=== PATIENT | female | born 1960 | race Two or more races ===

== ENCOUNTER 2021-09-03 09:40 | Outpatient (REF) | payer MEDICAID, SELFPAY ==
--- NOTE | ~2021-09-03 | XR_ITS ---
EXAMINATION: XR CHEST CLINICAL INFORMATION: Shortness of breath COMPARISON: None TECHNIQUE: 2 views of the chest were obtained. FINDINGS: Cardiac silhouette is normal in size. The lungs are well aerated. There is no lobar consolidation. No pleural effusion or pneumothorax. No acute osseous abnormality. XR/XR chest 2V IMPRESSION: No acute pulmonary pathology.
== END 2021-09-03 09:41 | disposition home or self-care (01) ==
LOC: HO.XRAY 09:40
PROVIDERS: Absent Provider Internal Medicine; PCP Internal Medicine; Visit Provider Emergency Medicine
DX: R06.02 Shortness of breath (principal)
CPT/HCPCS: 71046

== ENCOUNTER → 2021-09-25 08:32 | Outpatient (BNVA) | payer MEDICAID, SELFPAY | PROVIDERS: PCP Internal Medicine; Visit Provider Internal Medicine Pulmonary Disease ==

== ENCOUNTER 2021-10-21 08:48 | Outpatient (REF) | payer MEDICAID, SELFPAY ==
--- NOTE | 2021-10-21 10:23 | PFT_ITS ---
INDICATION: Dyspnea. SPIROMETRY: The FEV1 to FVC of 88% with an FEV1 of 2.42 L, 111% predicted, and FVC of 2.74 L, which is 99% predicted. No significant response to bronchodilators noted. Maximum voluntary ventilation 120% predicted. LUNG VOLUMES: Total lung capacity 98% predicted with an expiratory reserve volume of 59% predicted. DIFFUSION CAPACITY: DLCO 84% predicted. COMPARISONS: None available. INTERPRETATION: No obstructive nor restrictive ventilatory defects identified. No significant response to bronchodilators noted. Normal maximum voluntary ventilation. Lung volumes are within normal limits. The patient also has a normal diffusing capacity. If asthma is in the differential, methacholine challenge may be helpful in assessing for hyper-reactive airways, otherwise clinical correlation is warranted. MD ELLIOT Dillard/JEN / [id number]
== END 2021-10-21 08:49 | disposition home or self-care (01) ==
LOC: HO.RESP 08:48
PROVIDERS: PCP Internal Medicine; Visit Provider Internal Medicine Pulmonary Disease
DX: R06.00 Dyspnea, unspecified (principal)
CPT/HCPCS: 94060; 94727; 94729; 99212

== ENCOUNTER → 2021-11-27 08:04 | Outpatient (REF) | payer MEDICAID, SELFPAY ==
--- NOTE | 2021-11-27 08:09 | CA_ITS ---
Transthoracic Echocardiogram Patient (Last, First, Middle): Anthony Coulter, Gender: Female Date of : 1960 Age: 61 Procedure Date: 11/27/2021 Procedure Type: Transthoracic Echocardiogram Location: OP Height: 152.4 cm Weight: 49.9 kg BSA: 1.45 m2 Heart Rate: bpm BP: 120 / 70 mmHg Artist Representative: YR/TO Referring MD: Kd Thompson MD Procurement Manager: Mark Pimentel MD Symptoms: R06.00 - Dyspnea, unspecified Study Quality: Fair ECG Rhythm: Sinus Conclusions: - Essentially normal study Findings Left Ventricle Normal left ventricular size, thickness, and systolic function. The visually estimated ejection fraction is between 60-65%. Spectral Doppler is indicative of a normal filling pattern. Right Ventricle Normal right ventricular cavity size and systolic function. Atria The left atrium is normal in size. There is no evidence of interatrial shunt. The right atrium is normal in size. Aortic Valve The aortic valve structure and function is likely normal. There is no aortic valve stenosis. There is no aortic valve regurgitation. Mitral Valve Normal mitral valve structure and function. There is trace mitral valve regurgitation. There is no mitral valve stenosis. Pulmonic Valve The pulmonic valve was not well visualized. Tricuspid Valve Likely normal tricuspid valve structure and function. There is trace tricuspid valve regurgitation. The right ventricular systolic pressure is normal. The right ventricular systolic pressure is 29 mmHg. Normal right atrial pressure. There is no evidence of pulmonary hypertension. Great Vessels All visible segments of the aorta are normal in size. The pulmonary artery was not well visualized. Venous The inferior vena cava is normal in size and collapses greater than 50% with inspiration. Pericardium/Pleural There is no evidence of pericardial effusion. Prior Study Comparison No prior study available for comparison. Measurements 2D Linear Measurements IVSd: 0.66 0.6-0.9/0.6-1.0 cm LVIDd: 4.12 3.9-5.3/4.2-5.9 cm LVIDd Index: 2.84 2.4-3.2/2.2-3.1 cm/m2 LVIDs: 2.88 2.0-3.6 cm LVPWd: 0.74 0.7-1.1 cm LA Diam: 2.30 2.7-3.8/3.0-4.0 cm LAIDs Index: 1.59 1.5-2.3 cm/m2 LV Mass: 102.00 67-162/88-224 g LV Mass Index: 70.35 43-95/49-115 g/m2 LVOT Diam: 1.80 3.0+(-)1.3 cm 2D Systolic Function EF 4C: 58.80 >55% EF 2C: 64.30 >55% EF BiP: 62.80 >55% Mitral Valve MV Pk E: 0.87 MV PK A: 0.76 MV Decel Time: 269.00 E/A: 1.20 E'Lateral: 10.10 E'Medial: 6.74 E/E' Med: 13.00 E/E' Lat: 8.70 PHT: 79.00 MVA PHT: 2.78 Decel Tift: 3.24 Aortic Valve AoV Pk Jaime: 1.23 AoV Mn Jaime: 0.75 AoV VTI: 0.25 AoV Pk Grad: 6.00 Aov Mn Grad: 3.00 RUBY Cont.VTI: 2.16 LVOT LVOT Pk Jaime: 1.01 LVOT Mn Jaime: 0.61 LVOT VTI: 0.21 LVOT Pk Grad: 4.00 LVOT Mn Grad: 2.00 LVOT Diam: 1.80 LVOT Area: 2.54 Diastolic Function MV Pk E: 0.87 MV Pk A: 0.76 E/A: 1.20 E'Medial: 6.74 E/E' Med: 13.00 E' Laterial: 10.10 E/E' Lat: 8.70 Right Ventricle TAPSE (mm): 21.10 TVS' Jaime: 10.30 Tricuspid Valve TR Pk Jaime: 2.55 TR Pk Grad: 26.00 RA Press: 3.00 RVSP: 29.00 Great Vessels Aorta Sinus of Valsalva: 3.35 2.0-3.[address] [place]: 2.12 1.7-3.4 cm Ao Asc: 3.20 2.1-3.4 cm Updated in Other Vendor System with Status of Final Mark Pimentel MD electronically signed on 11/28/2021 3:44:00 PM with status of Final
== END ==
LOC: HO.CARD 08:04
PROVIDERS: Visit Provider Internal Medicine Pulmonary Disease
DX: R06.00 Dyspnea, unspecified (principal)
CPT/HCPCS: 93306

== ENCOUNTER → 2021-12-03 10:42 | Outpatient (BNVA) | payer MEDICAID, SELFPAY | PROVIDERS: PCP Internal Medicine; Visit Provider Internal Medicine Pulmonary Disease | DX: J45.909 Unspecified asthma, uncomplicated (principal); R06.00 Dyspnea, unspecified | CPT/HCPCS: 99212 ==

== ENCOUNTER → 2021-12-05 13:38 | Outpatient (BNVA) | payer MEDICAID, SELFPAY | PROVIDERS: PCP Internal Medicine; Referring Provider Internal Medicine; Visit Provider Nurse Practitioner Family | DX: R19.5 Other fecal abnormalities (principal); K21.9 Gastro-esophageal reflux disease without esophagitis; Z79.899 Other long term (current) drug therapy | CPT/HCPCS: 99202 ==

== ENCOUNTER 2022-02-24 10:44 | Outpatient (REF) | payer MEDICAID, SELFPAY ==
[2022-02-24 13:12] LABS: Amylase 60 U/L (28-100)
[2022-02-24 13:16] LABS: Lipase 16 U/L (8-78)
[2022-02-25 11:39] LABS: H Pylori Breath Test Negative (Negative)
== END 2022-02-24 10:45 | disposition home or self-care (01) ==
LOC: HO.LAB 10:44
PROVIDERS: PCP Internal Medicine; Visit Provider Nurse Practitioner Family
DX: K21.9 Gastro-esophageal reflux disease without esophagitis (principal); R63.4 Abnormal weight loss; R10.9 Unspecified abdominal pain; Z11.0 Encounter for screening for intestinal infectious diseases
CPT/HCPCS: 36415; 82150; 83013; 83690; 99212

== ENCOUNTER 2022-03-20 10:31 | Emergency (ER) | payer MEDICAID, SELFPAY ==
[2022-03-20 10:57] VITALS: BP 128/72; PULSE 63; RESP 22; TEMP 36.6; O2SAT 100; BMI 20.5
--- NOTE | 2022-03-20 19:28 | ED.GENADULT ---
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 Patient states that she has felt more tremulous lately and while at her GI appointment, they recommended she come to the ER. Patient denies any dizziness, lightheadedness, abdominal pain, nausea, vomiting, fever, chills, blurry vision, double vision, loss of vision, chest pain, difficulty breathing, shortness of breath, back pain, night sweats, pain with urination, increased urinary frequency, increased urinary urgency, blood in her urine or stool, syncope or a near syncopal episode, recent trauma or falls, bowel incontinence, bladder incontinence, bowel retention, bladder retention, or any other complaints at this time. Patient states that she was told by her doctor that she is shakey because of her anxiety and as a side effect of her medication. Onset (ago): month(s) Radiation: non-radiation Severity: mild Severity scale (1-10): 1 Relieving factors: none Exacerbating factors: none Associated symptoms: denies other symptoms Treatments prior to arrival: none Related Data Home Medications Medication Instructions Recorded Confirmed clonazepam 0.5 mg tablet 0.5 mg PO BID 09/25/21 paroxetine HCl 40 mg tablet 40 mg PO DAILY 09/25/21 risperidone 1 mg tablet 0 mg PO 09/25/21 trazodone 100 mg tablet 200 mg PO BEDTIME 09/25/21 Previous Rx's Medication Instructions Recorded Symbicort 160 mcg-4.5 2 puff inhalation BID 30 days 12/18/21 mcg/actuation HFA aerosol inhaler #10.2 grams (budesonide-formoterol) famotidine 40 mg tablet 40 mg PO BEDTIME #90 tabs 02/24/22 omeprazole 40 mg capsule,delayed 40 mg PO DAILY #90 caps 02/24/22 release bisacodyl 5 mg tablet,delayed 10 mg PO ONCE 1 day #2 tabs 03/20/22 release (Dulcolax (bisacodyl)) polyethylene glycol 3350 17 238 g PO ONCE #238 grams 03/20/22 gram/dose oral powder (Miralax) Allergies Allergy/AdvReac Type Severity Reaction Status Date / Time No Known Allergies Allergy Verified 03/20/22 09:50 Review of Systems Constitutional: Constitutional: Reports no additional constitutional complaints, Denies chills, Denies fever(s) and Denies night sweats Eyes: Eyes: Reports no additional eye complaints, Denies blurry vision, Denies change in vision, Denies diplopia, Denies eye discharge, Denies loss of vision and Denies eye pain ENT: Denies dizziness Cardiovascular: Cardiovascular: Reports no additional cardiovascular complaints, Denies chest pain, Denies lightheadedness, Denies Loss of Consciousness and Denies dyspnea Respiratory: Respiratory: Reports no additional respiratory complaints and Denies dyspnea Gastrointestinal: Gastrointestinal: Reports no additional gastrointestinal complaints, Denies abdominal pain, Denies melena, Denies hematochezia, Denies change in bowel habits and Denies change in stool character Genitourinary: Genitourinary: Denies hematuria, Denies urinary frequency, Denies dysuria, Denies urinary incontinence, Denies urinary hesitancy and Denies urinary urgency Musculoskeletal: Musculoskeletal: Reports no additional musculoskeletal complaints, Denies numbness and Denies tingling Neurologic: Denies dizziness, Denies loss of vision, Denies numbness, Denies tingling and Reports tremor(s) Psychiatric: Psychiatric: Reports no additional psychiatric complaints Endocrine: Endocrine: Reports no additional endocrine complaints Hematologic/Lymphatic: Hematologic/Lymphatic: Reports no additional hematologic/lymphatic complaints Allergic/Immunologic: Allergic/Immunologic: Reports no additional allergic/immunologic complaints PMFSH Past Medical History Attestation statement: The following information was validated with the patient. Source: old records reviewed Surgical History Hx of abdominal surgery Hx of hysterectomy Hx of tonsillectomy Social History Social History Household Members: Family Alcohol intake: never Patient Tobacco Use Status: Never used Tobacco Advance Directives: No Advance Directives Information Provided: Yes Physical Exam ED Vital Signs: Vital Signs - 24 hr 03/20/22 10:57 03/20/22 19:42 03/20/22 20:49 Temperature 97.9 F 99.4 F 98.2 F Pulse Rate 63 62 50 Respiratory Rate 22 H 20 18 Blood Pressure 128/72 153/61 H 163/70 H Pulse Oximetry 100 99 99 Oxygen Delivery Method Room Air Room Air Room Air BMI result Body Mass Index 20.5 Const General: cooperative, no acute distress, alert and awake Nutritional Appearance: well nourished Orientation/consciousness: patient oriented x3 Limitations: no limitations HENMT Head: Yes normal to inspection and Yes atraumatic Ears: hearing grossly normal bilaterally and external ears normal General nose exam: Normal external nose present, no nasal discharge noted and no epistaxis Face and sinus: Yes normal facial exam, No abrasion and No laceration Mouth: Normal oral and palatal mucosa present, no drooling and no muffled voice Eyes General: appearance normal, both eyes and all related structures Periorbital: periorbital findings normal Eyelids: Yes eyelids normal Conjunctivae: conjunctivae normal Pupils: Equal, round and reactive pupils present EOM: EOMs intact bilaterally Neck Neck: Yes normal visual inspection, Yes full ROM and Yes no lymphadenopathy Chest Chest palpation & inspection: normal inspection of the chest Resp Effort & Inspection: normal respiratory effort and able to speak in complete sentences Auscultation: clear to auscultation bilaterally Cardio Rate: regular rate Rhythm: regular rhythm GI Inspection: Yes normal to inspection Neuro General: patient oriented x3 and moves all extremities Cranial nerves: Yes Equal, round and reactive pupils present Cognition (Neuro): normal cognition Motor exam (neuro): 5/5 motor strength present throughout Sensory Exam: Normal double simultaneous stimulation for sensation Coordination: [id number] test normal Extrem General: Yes normal to inspection, Yes full ROM and Yes capillary refill normal Psych Appearance: grossly normal Mental Status: mental status grossly normal Affect: normal affect Attitude: cooperative Thought process: Normal thought process present Thought content: Normal thought content present Insight: Good insight present (Psych) NIH Stroke Scale Internal: Initial- Upon Arrival Time: 21:00 Level of Consciousness: Alert Level of Consciousness Questions: Answers both questions correctly Level of Consciousness Commands: Performs both tasks correctly Best Gaze: Normal Visual: No visual loss Facial Palsy: Normal Motor Arm (Right): No drift Motor Arm (Left): No drift Motor Leg (Right): No drift Motor Leg (Left): No drift Limb Ataxia: Absent Sensory: Normal Best Language: No aphasia Dysarthia: Normal Extinction and Inattention: No abnormality Score: 0 Medical Decision Making MDM Narrative Medical decision making narrative: Patient is a 61 year old female presenting to the emergency department today feeling tremulous. Patient's physical exam was unremarkable. Patient only began to have this tremor when she would talk about it. Patient was observed with no tremor while at rest and with movement. Patient's blood work was unremarkable. I explained my physical exam findings as well as all test results to the patient and the patient's . I answered all questions asked by the patient and the patient's . Patient received ativan which she stated helped her tremor significantly. I stressed the importance of the patient taking her medication as prescribed. I stressed the importance of the patient following up with her primary care provider. I stressed the importance of the patient returning to the emergency department immediately if her symptoms were to worsen or if she were to develop any dizziness, shortness of breath, difficulty breathing, chest pain, blurry vision, loss of vision, nausea, vomiting, abdominal pain, fever, chills, back pain, or any other complaints. Patient and the patient's verbalized agreement and understanding with this treatment plan and discharge. Differential Diagnosis Differential Diagnosis: tremor, anxiety Medical Records Medical records reviewed: Yes I reviewed the patient's medical records. Lab Data Lab results reviewed: Yes I reviewed the patient's lab results. Result diagrams: 03/20/22 20:00 03/20/22 20:00 Labs: Lab Results 03/20/22 03/20/22 Range/Units 20:00 20:00 WBC 9.7 (4.8-10.8) X10*3/uL RBC 4.02 L (4.20-5.50) X10*6/uL Hgb 13.1 (12.0-16.0) g/dl Hct 37.3 (37.0-47.0) % MCV 92.8 (80.0-98.0) fL MCH 32.6 (27.0-33.0) pg MCHC 35.1 H (31.0-35.0) g/dl RDW 14.1 (11.0-16.0) % Plt Count 266 (160-400) X10*3/uL MPV 10.6 (9.4-12.3) fL Immature Gran % (Auto) 0.2 (0.0-0.4) % Neut % (Auto) 60.6 (45-73) % Lymph % (Auto) 27.3 (20-40) % Charles % (Auto) 11.0 (2-11) % Eos % (Auto) 0.5 (0-4) % Baso % (Auto) 0.4 (0-2) % Lymph # (Auto) 2.7 (1.2-4.9) X10*3/uL Charles # (Auto) 1.1 (0.1-1.2) X10*3/uL Eos # (Auto) 0.1 (0.0-0.4) X10*3/uL Baso # (Auto) 0.0 (0.0-0.2) X10*3/uL Abs Immat Gran (auto) 0.02 (0.00-0.03) X10*3/uL Absolute Neuts (auto) 5.9 (2.0-8.3) x10*3/uL Absolute Nucleated RBC 0.000 (0.0-0.012) X10*3/uL Nucleated RBC % (auto) 0.0 (0.0-0.2) /100WBC Sodium 139 (135-145) mmol/L Potassium 3.7 (3.3-5.1) mmol/L Chloride 107 (96-108) mmol/L Carbon Dioxide 16 L (22-29) mmol/L Anion Gap 20 (12-20) BUN 13 (9-16) mg/dL Creatinine 0.80 (0.5-1.4) mg/dL Estim Creat Clear Calc 54.3 Estimated GFR > 60 Random Glucose 85 (60-115) mg/dL Calcium 9.8 (8.4-10.2) mg/dL Magnesium 2.0 (1.6-2.6) mg/dL Total Bilirubin 1.0 (0.0-1.0) mg/dL AST 44 H (5-31) U/L ALT 34 H (0-31) U/L Alkaline Phosphatase 102 (39-117) U/L Total Protein 7.1 (6.5-8.0) g/dL Albumin 4.4 (3.5-5.0) g/dL TSH 3.44 (0.32-4.0) uIU/mL Discharge Plan Discharge Clinical Impression: Tremor Patient Disposition: Home, Self-Care Instructions: Tremors (ED) Additional Instructions: Follow up with your primary care provider and your psychiatrist. Return to the emergency department immediately if your symptoms worsen or if you develop any dizziness, shortness of breath, difficulty breathing, chest pain, blurry vision, loss of vision, nausea, vomiting, abdominal pain, fever, chills, back pain, or any other complaints. Prescriptions: No Action budesonide-formoterol [Symbicort] 160-4.5 mcg/actuation HFA aerosol inhaler 2 puff inhalation BID 30 Days Qty: 10.2 6RF trazodone 100 mg tablet 200 mg PO BEDTIME risperidone 1 mg tablet 0 mg PO paroxetine HCl 40 mg tablet 40 mg PO DAILY clonazepam 0.5 mg tablet 0.5 mg PO BID omeprazole 40 mg capsule,delayed release(DR/EC) 40 mg PO DAILY Qty: 90 2RF famotidine 40 mg tablet 40 mg PO BEDTIME Qty: 90 3RF bisacodyl [Dulcolax (bisacodyl)] 5 mg tablet,delayed release (DR/EC) 10 mg PO ONCE 1 Days Qty: 2 0RF Rx Instructions: take 2 tabs at noon the day before your colonoscopy polyethylene glycol 3350 [Miralax] 17 gram/dose powder 238 g PO ONCE Qty: 238 0RF Rx Instructions: As directed by gastroenterology department at [facility] Referrals: Cachorro Mckeon MD [Primary Care Provider] - Interventions: ED Discharge Assessment Last Done: 03/20/22 22:09 Discharge Date/Time: 03/20/22 22:13 Print Language: Serbian
[2022-03-20 19:42] VITALS: BP 153/61; PULSE 62; RESP 20; TEMP 37.4; O2SAT 99
[2022-03-20] MEDS: LORazepam 1 MG TABLET 2 MG PO (19:50)
[2022-03-20 20:04] LABS: MANUAL DIFF FLAG NO
[2022-03-20 20:06] LABS: Basophils Percent Auto 0.4 % (0-2); Eosinophils Absolute Auto 0.1 X10*3/uL (0.0-0.4); Eosinophils Percent Auto 0.5 % (0-4); Hematocrit 37.3 % (37.0-47.0); Hemoglobin 13.1 g/dl (12.0-16.0); Imm Gran Abs Auto 0.02 X10*3/uL (0.00-0.03); Imm Gran Pct Auto 0.2 % (0.0-0.4); Lymphocytes Absolute Auto 2.7 X10*3/uL (1.2-4.9); Lymphocytes Percent Auto 27.3 % (20-40); Mean Corpuscular HGB Conc 35.1 g/dl (31.0-35.0); Mean Corpuscular Hemoglobin 32.6 pg (27.0-33.0); Mean Corpuscular Volume 92.8 fL (80.0-98.0); Mean Platelet Volume 10.6 fL (9.4-12.3); Monocytes Absolute Auto 1.1 X10*3/uL (0.1-1.2); Neutrophils Absolute Auto 5.9 x10*3/uL (2.0-8.3); Neutrophils Percent Auto 60.6 % (45-73); Platelet Count 266 X10*3/uL (160-400); Red Blood Count 4.02 X10*6/uL (4.20-5.50); Red Cell Distribution Width 14.1 % (11.0-16.0); White Blood Count 9.7 X10*3/uL (4.8-10.8)
[2022-03-20 20:23] LABS: Alanine Aminotransferase 34 U/L (0-31); Albumin Level 4.4 g/dL (3.5-5.0); Alkaline Phosphatase 102 U/L (39-117); Anion Gap 20 (12-20); Aspartate Amino Transferase 44 U/L (5-31); Blood Urea Nitrogen 13 mg/dL (9-16); Calcium 9.8 mg/dL (8.4-10.2); Carbon Dioxide 16 mmol/L (22-29); Chloride 107 mmol/L (96-108); Creatinine Clr Calc Pharmacy 54.3; Estimated Glomerular Filt Rate > 60; Glucose Random 85 mg/dL (60-115); Potassium 3.7 mmol/L (3.3-5.1); Sodium 139 mmol/L (135-145); Total Protein 7.1 g/dL (6.5-8.0)
[2022-03-20 20:41] LABS: TSH reflex Free T4 3.44 uIU/mL (0.32-4.0)
[2022-03-20 20:49] VITALS: BP 163/70; PULSE 50; RESP 18; TEMP 36.8; O2SAT 99
== END 2022-03-20 22:13 | disposition home or self-care (01) ==
PROVIDERS: Physician Assistant Medical; Emergency Provider Emergency Medicine Emergency Medical Services; PCP Internal Medicine
DX: R25.1 Tremor, unspecified (principal)
CPT/HCPCS: 36415; 80053; 83735; 84443; 85025; 99283; 99284

== ENCOUNTER 2022-03-26 11:42 | Emergency (ER) | payer MEDICAID, SELFPAY ==
[2022-03-26 11:48] VITALS: BP 144/72; PULSE 92; O2SAT 100
[2022-03-26 11:59] VITALS: BP 140/70; PULSE 88; RESP 16; TEMP 36.7; O2SAT 100; BMI 21.2
--- NOTE | 2022-03-26 12:19 | ECG_ITS ---
Test Reason : anxiety Blood Pressure : / mmHG Vent. Rate : 074 BPM Atrial Rate : 074 BPM P-R Int : 118 ms QRS Dur : 072 ms QT Int : 428 ms P-R-T Axes : 056 034 -29 degrees QTc Int : 475 ms Normal sinus rhythm Nonspecific ST and T wave abnormality Prolonged QT Abnormal ECG No previous ECGs available Referred By: Jourdan Nielsen Electronically Signed By:KERVIN VILLALPANDO
[2022-03-26 13:02] LABS: MANUAL DIFF FLAG NO
[2022-03-26 13:04] LABS: Basophils Percent Auto 0.5 % (0-2); Eosinophils Percent Auto 0.5 % (0-4); Hematocrit 34.1 % (37.0-47.0); Hemoglobin 11.9 g/dl (12.0-16.0); Imm Gran Abs Auto 0.02 X10*3/uL (0.00-0.03); Imm Gran Pct Auto 0.2 % (0.0-0.4); Lymphocytes Absolute Auto 2.3 X10*3/uL (1.2-4.9); Lymphocytes Percent Auto 28.7 % (20-40); Mean Corpuscular HGB Conc 34.9 g/dl (31.0-35.0); Mean Corpuscular Hemoglobin 32.6 pg (27.0-33.0); Mean Corpuscular Volume 93.4 fL (80.0-98.0); Mean Platelet Volume 9.4 fL (9.4-12.3); Monocytes Absolute Auto 0.9 X10*3/uL (0.1-1.2); Monocytes Percent Auto 10.9 % (2-11); Neutrophils Absolute Auto 4.8 x10*3/uL (2.0-8.3); Neutrophils Percent Auto 59.2 % (45-73); Platelet Count 259 X10*3/uL (160-400); Red Blood Count 3.65 X10*6/uL (4.20-5.50); Red Cell Distribution Width 14.5 % (11.0-16.0); White Blood Count 8.1 X10*3/uL (4.8-10.8)
[2022-03-26] MEDS: LORazepam 1 MG TABLET 2 MG PO (13:07)
[2022-03-26 13:12] VITALS: BP 116/63; PULSE 76; RESP 24; TEMP 36.5; O2SAT 100
[2022-03-26 13:22] LABS: Alanine Aminotransferase 16 U/L (0-31); Albumin Level 3.8 g/dL (3.5-5.0); Alkaline Phosphatase 79 U/L (39-117); Anion Gap 18 (12-20); Aspartate Amino Transferase 12 U/L (5-31); Bilirubin Total 0.4 mg/dL (0.0-1.0); Blood Urea Nitrogen 9 mg/dL (9-16); Calcium 8.6 mg/dL (8.4-10.2); Carbon Dioxide 20 mmol/L (22-29); Chloride 105 mmol/L (96-108); Creatinine Clr Calc Pharmacy 54.3; Estimated Glomerular Filt Rate > 60; Glucose Random 81 mg/dL (60-115); Potassium 3.1 mmol/L (3.3-5.1); Sodium 140 mmol/L (135-145)
[2022-03-26 13:28] LABS: Troponin-I High Sensitivity < 3.5 ng/L (<3.5-17.0)
--- NOTE | 2022-03-26 14:30 | PC.NURSE ---
PT UNSTEADY ON FEET. AMB WITH ASSIST TO BR
--- NOTE | 2022-03-26 15:04 | ED_ITS ---
HPI - Anxiety General Chief Complaint: Anxiety Stated Complaint: ANXIETY Time Seen by Provider: 03/26/22 12:00 Source: patient Mode of arrival: EMS Limitations: language barrier ([place] speaking only) History of Present Illness HPI narrative: 61-year-old female who presents emergency department for evaluation of panic attack. The patient states that she was with her brother and they were going to talk to the land [facility] about there apartment contract. She states that prior to the discussion occurring, she started to feel panicked. She developed pressure in her chest. She felt very short of breath. She states she felt extremely anxious. She did not appear well so the landlord and the brother called an a mbulance and patient was transported to the emergency department. The patient had a very similar presentation on 03/20/2022. At the time my evaluation, the patient is hyperventilating on a she appears to be extremely anxious, she is dyspneic as well. Patient also has rhythmic movements of her face and extremities which I believe is consistent with tardive dyskinesia. Related Data Home Medications Medication Instructions Recorded Confirmed clonazepam 0.5 mg tablet 0.5 mg PO BID 09/25/21 paroxetine HCl 40 mg tablet 40 mg PO DAILY 09/25/21 risperidone 1 mg tablet 0 mg PO 09/25/21 trazodone 100 mg tablet 200 mg PO BEDTIME 09/25/21 Previous Rx's Medication Instructions Recorded Symbicort 160 mcg-4.5 2 puff inhalation BID 30 days 12/18/21 mcg/actuation HFA aerosol inhaler #10.2 grams (budesonide-formoterol) famotidine 40 mg tablet 40 mg PO BEDTIME #90 tabs 02/24/22 omeprazole 40 mg capsule,delayed 40 mg PO DAILY #90 caps 02/24/22 release bisacodyl 5 mg tablet,delayed 10 mg PO ONCE 1 day #2 tabs 03/20/22 release (Dulcolax (bisacodyl)) polyethylene glycol 3350 17 238 g PO ONCE #238 grams 03/20/22 gram/dose oral powder (Miralax) Allergies Allergy/AdvReac Type Severity Reaction Status Date / Time No Known Allergies Allergy Verified 03/20/22 09:50 Review of Systems Review of Systems: Yes all other systems are reviewed and are negative [facility] Past Medical History [facility] Narrative: Past medical history: Anxiety. Past surgical history: Hysterectomy and tonsillectomy. Social history: She lives with her brother. She denies tobacco use. She denies alcohol use. She denies drug use. Surgical History Hx of abdominal surgery Hx of hysterectomy Hx of tonsillectomy Social History Social History Household Members: Family Alcohol intake: never Patient Tobacco Use Status: Never used Tobacco Advance Directives: No Advance Directives Information Provided: No Physical Exam Vital Signs: Vital Signs: Last Vital Signs Temp 97.7 F 03/26/22 13:12 Pulse 76 03/26/22 13:12 Resp 24 H 03/26/22 13:12 BP 116/63 03/26/22 13:12 Pulse Ox 100 03/26/22 13:12 O2 Del Method 03/26/22 13:12 BMI result Body Mass Index 21.2 Const: Other: Awake, alert, female patient, she appears to be extremely anxious, she is tachypneic. The patient has rhythmic movement of her face and arms which I believe is consistent with tardive dyskinesia HEENT: Head: Yes normal to inspection, Yes normocephalic and Yes atraumatic Ears: external ears normal General nose exam: Normal external nose present Face and sinus: Yes normal facial exam Mouth: Normal oral and palatal mucosa present Throat: Yes posterior oropharynx normal Eyes: General: appearance normal, both eyes and all related structures Pupils: Equal, round and reactive pupils present Neck: Neck: Yes normal visual inspection, Yes no lymphadenopathy, Yes trachea midline and Yes supple Chest: Chest palpation & inspection: normal inspection of the chest and tenderness (Moderate tenderness to the anterior chest) Resp: Effort & Inspection: normal respiratory effort and able to speak in complete sentences Auscultation: clear to auscultation bilaterally Cardio: Rate: regular rate Rhythm: regular rhythm Heart sounds: S1 normal heart sound present, S2 normal heart sound present and no murmurs GI: Inspection: Yes normal to inspection Palpation (GI): Soft to palpation, nontender and no guarding Auscultation: normal bowel sounds : General: Yes no CVA tenderness Back/Spine/Pelvis: Back: no CVA tenderness Skin: General skin exam: no rashes or lesions noted Neuro: Cranial nerves: Yes CN's II-XII intact bilaterally and Yes Equal, round and reactive pupils present Cognition (Neuro): normal cognition Motor exam (neuro): 5/5 motor strength present throughout Extrem: General: Yes normal to inspection Psych: Appearance: grossly normal Affect: Anxious affect present Attitude: cooperative Thought process: Normal thought process present Thought content: Normal thought content present Course Course Course Narrative: 61-year-old female who presents emergency department for evaluation of acute anx iety/panic attack. Patient was extremely anxious on presentation, she was also tachypneic. The patient had multiple complaints including chest pain home lightheadedness and dizziness. The patient's physical examination is consistent with a panic attack she did have tenderness palpation of her chest wall. Patient's 12 EKG was unremarkable. Laboratory evaluation revealed mild anemia with an H&H of 11.2 and 34.1. Potassium was low 3.1. CO2 was low 20. High sensitivity troponin I was below detectable limits. The patient was treated with Ativan 1 mg orally with improvement which she required a 2nd dose of Ativan 0.5 mg orally. Patient was advised to continue taking her medications as pr escribed by her providers and to follow-up with a prescribing provider to determine if she needs a change in her medications. MDM - Anxiety Medical Records Attestation: I reviewed the patient's medical records. Lab Data Attestation: I reviewed the patient's lab results. Result diagrams: 03/26/22 12:58 03/26/22 12:58 Labs: Lab Results 03/26/22 03/26/2218 Range/Units 12:58 12:58 12:58 WBC 8.1 (4.8-10.8) X10*3/uL RBC 3.65 L (4.20-5.50) X10*6/uL Hgb 11.9 L (12.0-16.0) g/dl Hct 34.1 L (37.0-47.0) % MCV 93.4 (80.0-98.0) fL MCH 32.6 (27.0-33.0) pg MCHC 34.9 (31.0-35.0) g/dl RDW 14.5 (11.0-16.0) % Plt Count 259 (160-400) X10*3/uL MPV 9.4 (9.4-12.3) fL Immature Gran % (Auto) 0.2 (0.0-0.4) % Neut % (Auto) 59.2 (45-73) % Lymph % (Auto) 28.7 (20-40) % Leslie % (Auto) 10.9 (2-11) % Eos % (Auto) 0.5 (0-4) % Baso % (Auto) 0.5 (0-2) % Lymph # (Auto) 2.3 (1.2-4.9) X10*3/uL Leslie # (Auto) 0.9 (0.1-1.2) X10*3/uL Eos # (Auto) 0.0 (0.0-0.4) X10*3/uL Baso # (Auto) 0.0 (0.0-0.2) X10*3/uL Abs Immat Gran (auto) 0.02 (0.00-0.03) X10*3/uL Absolute Neuts (auto) 4.8 (2.0-8.3) x10*3/uL Absolute Nucleated RBC 0.000 (0.0-0.012) X10*3/uL Nucleated RBC % (auto) 0.0 (0.0-0.2) /100WBC Sodium 140 (135-145) mmol/L Potassium 3.1 L (3.3-5.1) mmol/L Chloride 105 (96-108) mmol/L Carbon Dioxide 20 L (22-29) mmol/L Anion Gap 18 (12-20) BUN 9 (9-16) mg/dL Creatinine 0.76 (0.5-1.4) mg/dL Estim Creat Clear Calc 54.3 Estimated GFR > 60 Random Glucose 81 (60-115) mg/dL Calcium 8.6 D (8.4-10.2) mg/dL Total Bilirubin 0.4 (0.0-1.0) mg/dL AST 12 D (5-31) U/L ALT 16 (0-31) U/L Alkaline Phosphatase 79 D (39-117) U/L Troponin I High Sens < 3.5 (<3.5-17.0) ng/L Total Protein 6.0 L (6.5-8.0) g/dL Albumin 3.8 (3.5-5.0) g/dL ECG Data Attestation: I personally reviewed and interpreted this ECG as follows: Interpretation: 1226: Normal sinus rhythm rate of 74, normal TN, QRS intervals, prolonged QTC interval of 475 milliseconds, no ST segment elevation, no ST segment depression, no PACs, no PVCs. Discharge Plan Discharge Clinical Impression: Panic attack Patient Disposition: Home, Self-Care Instructions: Panic Attack (ED) Additional Instructions: Continue taking medications as prescribed by your providers. You received Ativan 1 mg orally and Ativan 0.5 mg orally. These medications will make you sleepy. Go home and rest. Follow-up with your doctor in 2 days. Please return to the emergency department if your symptoms get worse or if you develop any symptoms that are concerning to you. Prescriptions: No Action budesonide-formoterol [Symbicort] 160-4.5 mcg/actuation HFA aerosol inhaler 2 puff inhalation BID 30 Days Qty: 10.2 6RF trazodone 100 mg tablet 200 mg PO BEDTIME risperidone 1 mg tablet 0 mg PO paroxetine HCl 40 mg tablet 40 mg PO DAILY clonazepam 0.5 mg tablet 0.5 mg PO BID omeprazole 40 mg capsule,delayed release(DR/EC) 40 mg PO DAILY Qty: 90 2RF famotidine 40 mg tablet 40 mg PO BEDTIME Qty: 90 3RF bisacodyl [Dulcolax (bisacodyl)] 5 mg tablet,delayed release (DR/EC) 10 mg PO ONCE 1 Days Qty: 2 0RF Rx Instructions: take 2 tabs at noon the day before your colonoscopy polyethylene glycol 3350 [Miralax] 17 gram/dose powder 238 g PO ONCE Qty: 238 0RF Rx Instructions: As directed by gastroenterology department at [facility]
[2022-03-26 16:00] VITALS: BP 105/65; PULSE 78; RESP 16; TEMP 36.6; O2SAT 98
[2022-03-26] MEDS: LORazepam 0.5 MG TABLET PO (16:20)
[2022-03-26] MEDS: LORazepam 1 MG TABLET PO (16:21)
== END 2022-03-26 16:24 | disposition home or self-care (01) ==
PROVIDERS: Emergency Provider Emergency Medicine Emergency Medical Services; PCP Internal Medicine
DX: F41.0 Panic disorder [episodic paroxysmal anxiety] (principal); R06.82 Tachypnea, not elsewhere classified
CPT/HCPCS: 36415; 80053; 84484; 85025; 93005; 99283; 99284

== ENCOUNTER 2022-03-28 12:30 | Emergency (ER) | payer MEDICAID, SELFPAY ==
--- NOTE | ~2022-03-28 | XR_ITS ---
EXAMINATION: XR CHEST CLINICAL INFORMATION: Shortness of breath. COMPARISON: 09/03/2021 chest radiographs. TECHNIQUE: 2 views of the chest were obtained. FINDINGS: No significant abnormality is noted involving the heart, lungs, mediastinum, bony thorax or soft tissues. XR/XR chest 2V IMPRESSION: No acute cardiopulmonary process.
--- NOTE | ~2022-03-28 | CT_ITS ---
EXAMINATION: CT HEAD WITHOUT CONTRAST CLINICAL INFORMATION: Confusion. COMPARISON: No relevant prior imaging. TECHNIQUE: Contiguous axial imaging was performed from the skull base to vertex without intravenous administration of contrast. This CT examination was performed using dose optimization techniques as appropriate, variously including the following: *Automated exposure control *Adjustment of mA and/or kV according to patient size (this includes techniques or standardized protocols for targeted exams where dose is matched to indication/reason for exam; i.e. extremities or head) *Use of iterative reconstruction technique DLP: 581 mGy-cm FINDINGS: There is no acute intracranial hemorrhage or abnormal extra-axial collection. No intracranial mass effect or midline shift. Lateral and third ventricles are normal. No hydrocephalus. Reyes-white matter differentiation is grossly preserved and there is no evidence of acute territorial infarct. The calvarium and skull base are intact. Mastoid air cells and middle ear cavities are well aerated. No active paranasal sinus disease. CT/CT head/brain wo con IMPRESSION: Unremarkable CT scan of the head. No evidence of acute territorial infarct or hemorrhage.
--- NOTE | 2022-03-28 07:35 | ECG_ITS ---
Test Reason : REPEAT Blood Pressure : / mmHG Vent. Rate : 082 BPM Atrial Rate : 082 BPM P-R Int : 116 ms QRS Dur : 074 ms QT Int : 408 ms P-R-T Axes : 042 021 043 degrees QTc Int : 476 ms Normal sinus rhythm Nonspecific ST and T wave abnormality Prolonged QT Abnormal ECG When compared with ECG of 28-MAR-2022 12:49, No significant change was found Referred By: David Dixon Electronically Signed By:KERVIN VILLALPANDO
--- NOTE | 2022-03-28 12:50 | ED_ITS ---
HPI - General Adult General Chief complaint: Dyspnea Stated complaint: SOB Abdominal pain Time Seen by Provider: 03/28/22 12:45 Source: patient, family (granddaughter), EMS and [employer] interpreter Mode of arrival: EMS Limitations: language barrier History of Present Illness HPI narrative: Patient is a 61 year old female presenting to the emergency department today with shortness of breath and anxiety. Patient states that she feels very worked up and as if she cannot catch her breath. Patient states that this has been going on for the last month and she has been seen twice for this in the last week but they can't find anything. Patient denies any dizziness, lightheadedness, abdominal pain, nausea, vomiting, fever, chills, blurry vision, double vision, loss of vision, chest pain, back pain, night sweats, pain with urination, increased urinary frequency, increased urinary urgency, blood in her urine or stool, syncope or a near syncopal episode, recent trauma or falls, bowel incontinence, bladder incontinence, bowel retention, bladder retention, or any other complaints at this time. Patient states that she is taking all of her medications as prescribed. Patient's granddaughter states that the patient seems to be more forgetful lately and that how she has been acting over the last month is not her normal. Onset (ago): month(s) (1) Severity: mild Severity scale (1-10): 3 Pain Consistency: constant Relieving factors: none Exacerbating factors: none Associated symptoms: denies other symptoms Treatments prior to arrival: none Related Data Home Medications Medication Instructions Recorded Confirmed paroxetine HCl 40 mg tablet 40 mg PO DAILY 09/25/21 risperidone 1 mg tablet 0 mg PO 09/25/21 trazodone 100 mg tablet 200 mg PO BEDTIME 09/25/21 Previous Rx's Medication Instructions Recorded Symbicort 160 mcg-4.5 2 puff inhalation BID 30 days 12/18/21 mcg/actuation HFA aerosol inhaler #10.2 grams (budesonide-formoterol) famotidine 40 mg tablet 40 mg PO BEDTIME #90 tabs 02/24/22 omeprazole 40 mg capsule,delayed 40 mg PO DAILY #90 caps 02/24/22 release bisacodyl 5 mg tablet,delayed 10 mg PO ONCE 1 day #2 tabs 03/20/22 release (Dulcolax (bisacodyl)) polyethylene glycol 3350 17 238 g PO ONCE #238 grams 03/20/22 gram/dose oral powder (Miralax) amantadine HCl 100 mg capsule 100 mg PO BID #30 caps 03/28/22 clonazepam 0.5 mg tablet 0.5 mg PO BID #30 tabs 03/28/22 propranolol 10 mg tablet 10 mg PO BID #30 tabs 03/28/22 Allergies Allergy/AdvReac Type Severity Reaction Status Date / Time No Known Allergies Allergy Verified 03/20/22 09:50 Review of Systems Constitutional: Constitutional: Reports no additional constitutional complaints, Denies chills, Denies fever(s) and Denies night sweats Eyes: Eyes: Reports no additional eye complaints, Denies blurry vision, Denies change in vision, Denies diplopia, Denies eye discharge, Denies loss of vision and Denies eye pain ENT: Denies dizziness Cardiovascular: Cardiovascular: Reports no additional cardiovascular complaints, Denies chest pain, Denies lightheadedness, Denies Loss of Consciousness and Denies dyspnea Respiratory: Respiratory: Reports no additional respiratory complaints and Denies dyspnea Gastrointestinal: Gastrointestinal: Reports no additional gastrointestinal complaints, Denies abdominal pain, Denies melena, Denies hematochezia, Denies change in bowel habits and Denies change in stool character Genitourinary: Genitourinary: Denies hematuria, Denies urinary frequency, Denies dysuria, Denies urinary incontinence, Denies urinary hesitancy and Denies urinary urgency Musculoskeletal: Musculoskeletal: Reports no additional musculoskeletal complaints, Denies numbness and Denies tingling Neurologic: Denies dizziness, Denies loss of vision, Denies numbness and Denies tingling Psychiatric: Psychiatric: Reports no additional psychiatric complaints Endocrine: Endocrine: Reports no additional endocrine complaints Hematologic/Lymphatic: Hematologic/Lymphatic: Reports no additional hematologic/lymphatic complaints Allergic/Immunologic: Allergic/Immunologic: Reports no additional allergic/immunologic complaints PMFSH Past Medical History Attestation statement: The following information was validated with the patient. Source: old records reviewed Surgical History Hx of abdominal surgery Hx of hysterectomy Hx of tonsillectomy Social History Social History Household Members: Family Alcohol intake: never Patient Tobacco Use Status: Never used Tobacco Use of substances other than those prescribed or required for medical reasons: No Advance Directives: No Advance Directives Information Provided: Yes Physical Exam ED Vital Signs: Vital Signs - 24 hr 03/28/22 12:54 03/28/22 14:29 Temperature 97.6 F Pulse Rate 86 90 Respiratory Rate 26 H 17 Blood Pressure 133/77 133/98 H Pulse Oximetry 99 100 Oxygen Delivery Method Room Air Room Air BMI result Body Mass Index 19.6 Const General: cooperative, no acute distress, alert and awake Nutritional Appearance: well nourished Orientation/consciousness: patient oriented x3 Limitations: no limitations HENMT Head: Yes normal to inspection and Yes atraumatic Ears: hearing grossly normal bilaterally and external ears normal General nose exam: Normal external nose present, no nasal discharge noted and no epistaxis Face and sinus: Yes normal facial exam, No abrasion and No laceration Mouth: Normal oral and palatal mucosa present, no drooling and no muffled voice Eyes General: appearance normal, both eyes and all related structures Periorbital: periorbital findings normal Eyelids: Yes eyelids normal Conjunctivae: conjunctivae normal Pupils: Equal, round and reactive pupils present EOM: EOMs intact bilaterally Neck Neck: Yes normal visual inspection, Yes full ROM and Yes no lymphadenopathy Chest Chest palpation & inspection: normal inspection of the chest Resp Effort & Inspection: normal respiratory effort and able to speak in complete sentences Auscultation: clear to auscultation bilaterally GI Inspection: Yes normal to inspection Palpation (GI): Soft to palpation, not firm, nontender, no guarding and not rigid Neuro General: patient oriented x3 and moves all extremities Cranial nerves: Yes Equal, round and reactive pupils present Cognition (Neuro): normal cognition Motor exam (neuro): 5/5 motor strength present throughout Sensory Exam: Normal double simultaneous stimulation for sensation Coordination: [id number] test normal Extrem General: Yes normal to inspection, Yes full ROM and Yes capillary refill normal Psych Appearance: grossly normal Mental Status: mental status grossly normal Affect: normal affect Attitude: cooperative Thought process: Normal thought process present Thought content: Normal thought content present Insight: Good insight present (Psych) Medical Decision Making MDM Narrative Medical decision making narrative: Patient is a 61 year old female presenting to the emergency department today with anxiety. Patient's physical exam was unremarkable. Patient's blood work showed a decreased potassium at 2.9 but was otherwise unremarkable. Patient's urine showed no acute process. Patient's EKG was unremarkable. Patient's chest x-ray and head CT showed no acute process. I consulted Jo Kaur, psychiatric mental health nurse, who examined the patient. We determined that the patient is likely experiencing medication side effects secondary to taking her psychiatric medication inappropriately. Jo stated that she gave the patient and her niece explicit instructions on how to appropriately manage her medications and is going to prescribe some medication to help the symptoms. I also put in a case management consultation to help with setting up VNA. I explained my physical exam findings as well as all test results to the patient and the patient's niece. I answered all questions asked by the patient and the patient's niece. Patient received PO and IV Potassium as well as PO Ativan while in the department. I stressed the importance of the patient taking her medication as prescribed. I stressed the importance of the patient following up with her primary care provider and psychiatrist. I stressed the importance of the patient returning to the emergency department immediately if her symptoms were to worsen or if she were to develop any dizziness, shortness of breath, difficulty breathing, chest pain, blurry vision, loss of vision, nausea, vomiting, abdominal pain, fever, chills, back pain, or any other complaints. Patient and the patient's niece verbalized agreement and understanding with this treatment plan and discharge. Differential Diagnosis Differential Diagnosis: Medication reaction, hypokalemia Medical Records Medical records reviewed: Yes I reviewed the patient's medical records. Lab Data Lab results reviewed: Yes I reviewed the patient's lab results. Result diagrams: 03/28/22 13:14 03/28/22 13:14 Labs: Lab Results 03/28/22 03/28/22 03/28/22 Range/Units 13:14 13:14 13:14 WBC 6.8 (4.8-10.8) X10*3/uL RBC 3.98 L (4.20-5.50) X10*6/uL Hgb 12.9 (12.0-16.0) g/dl Hct 36.4 L (37.0-47.0) % MCV 91.5 (80.0-98.0) fL MCH 32.4 (27.0-33.0) pg MCHC 35.4 H (31.0-35.0) g/dl RDW 14.5 (11.0-16.0) % Plt Count 270 (160-400) X10*3/uL MPV 9.2 L (9.4-12.3) fL Immature Gran % (Auto) 0.4 (0.0-0.4) % Neut % (Auto) 65.9 (45-73) % Lymph % (Auto) 22.3 (20-40) % [place] % (Auto) 10.6 (2-11) % Eos % (Auto) 0.4 (0-4) % Baso % (Auto) 0.4 (0-2) % Lymph # (Auto) 1.5 (1.2-4.9) X10*3/uL [place] # (Auto) 0.7 (0.1-1.2) X10*3/uL Eos # (Auto) 0.0 (0.0-0.4) X10*3/uL Baso # (Auto) 0.0 (0.0-0.2) X10*3/uL Abs Immat Gran (auto) 0.03 (0.00-0.03) X10*3/uL Absolute Neuts (auto) 4.5 (2.0-8.3) x10*3/uL Absolute Nucleated RBC 0.000 (0.0-0.012) X10*3/uL Nucleated RBC % (auto) 0.0 (0.0-0.2) /100WBC D-Dimer High Sensitivty NG/ML Sodium 140 (135-145) mmol/L Potassium 2.9 L (3.3-5.1) mmol/L Chloride 109 H (96-108) mmol/L Carbon Dioxide 16 L (22-29) mmol/L Anion Gap 18 (12-20) BUN 12 (9-16) mg/dL Creatinine 0.74 (0.5-1.4) mg/dL Estim Creat Clear Calc 58.7 Estimated GFR > 60 Random Glucose 81 (60-115) mg/dL Calcium 9.4 D (8.4-10.2) mg/dL Magnesium 1.9 (1.6-2.6) mg/dL Total Bilirubin 0.6 (0.0-1.0) mg/dL AST 14 (5-31) U/L ALT 14 (0-31) U/L Alkaline Phosphatase 85 (39-117) U/L Troponin I High Sens < 3.5 (<3.5-17.0) ng/L Total Protein 6.4 L (6.5-8.0) g/dL Albumin 4.1 (3.5-5.0) g/dL Urine Color Urine Appearance Urine pH (5.0-8.0) Ur Specific Beemer (1.005-1.025) Urine Protein (Neg-Trace) mg/dL Urine Glucose (UA) (Negative) mg/dL Urine Ketones (Negative) mg/dL Urine Blood (Negative) Urine Nitrite (Negative) Ur Leukocyte Esterase (Negative) Salicylates < 5.0 L (15-30) mg/dL Acetaminophen < 1 (<30) mcg/mL COVID-19 ([facility]) (Negative) COVID-19 Clin Com 03/28/22 03/28/22 03/28/22 Range/Units 13:14 13:14 16:01 WBC (4.8-10.8) X10*3/uL RBC (4.20-5.50) X10*6/uL Hgb (12.0-16.0) g/dl Hct (37.0-47.0) % MCV (80.0-98.0) fL MCH (27.0-33.0) pg MCHC (31.0-35.0) g/dl RDW (11.0-16.0) % Plt Count (160-400) X10*3/uL MPV (9.4-12.3) fL Immature Gran % (Auto) (0.0-0.4) % Neut % (Auto) (45-73) % Lymph % (Auto) (20-40) % [place] % (Auto) (2-11) % Eos % (Auto) (0-4) % Baso % (Auto) (0-2) % Lymph # (Auto) (1.2-4.9) X10*3/uL [place] # (Auto) (0.1-1.2) X10*3/uL Eos # (Auto) (0.0-0.4) X10*3/uL Baso # (Auto) (0.0-0.2) X10*3/uL Abs Immat Gran (auto) (0.00-0.03) X10*3/uL Absolute Neuts (auto) (2.0-8.3) x10*3/uL Absolute Nucleated RBC (0.0-0.012) X10*3/uL Nucleated RBC % (auto) (0.0-0.2) /100WBC D-Dimer High Sensitivty < 150 NG/ML Sodium (135-145) mmol/L Potassium (3.3-5.1) mmol/L Chloride (96-108) mmol/L Carbon Dioxide (22-29) mmol/L Anion Gap (12-20) BUN (9-16) mg/dL Creatinine (0.5-1.4) mg/dL Estim Creat Clear Calc Estimated GFR Random Glucose (60-115) mg/dL Calcium (8.4-10.2) mg/dL Magnesium (1.6-2.6) mg/dL Total Bilirubin (0.0-1.0) mg/dL AST (5-31) U/L ALT (0-31) U/L Alkaline Phosphatase (39-117) U/L Troponin I High Sens (<3.5-17.0) ng/L Total Protein (6.5-8.0) g/dL Albumin (3.5-5.0) g/dL Urine Color Yellow Urine Appearance Clear Urine pH 8.5 H (5.0-8.0) Ur Specific [place] <= 1.005 (1.005-1.025) Urine Protein Negative (Neg-Trace) mg/dL Urine Glucose (UA) Negative (Negative) mg/dL Urine Ketones 15 (Negative) mg/dL Urine Blood Negative (Negative) Urine Nitrite Negative (Negative) Ur Leukocyte Esterase Negative (Negative) Salicylates (15-30) mg/dL Acetaminophen (<30) mcg/mL COVID-19 ([facility]) Negative (Negative) COVID-19 Clin Com See Note Imaging Data CT scan - head: Attestation: I personally reviewed and interpreted this imaging study as follows: My impression: No acute process. Radiologist's impression: EXAMINATION: CT HEAD WITHOUT CONTRAST CLINICAL INFORMATION: Confusion.? COMPARISON: No relevant prior imaging. TECHNIQUE: Contiguous axial imaging was performed from the skull base to vertex without intravenous administration of contrast. This CT examination was performed using dose optimization techniques as appropriate, variously including the following: *Automated exposure control *Adjustment of mA and/or kV according to patient size (this includes techniques or standardized protocols for targeted exams where dose is matched to indication/reason for exam; i.e. extremities or head) *Use of iterative reconstruction technique DLP: 581 mGy-cm FINDINGS: There is no acute intracranial hemorrhage or abnormal extra-axial collection. No intracranial mass effect or midline shift. Lateral and third ventricles are normal. No hydrocephalus. Reyes-white matter differentiation is grossly preserved and there is no evidence of acute territorial infarct. The calvarium and skull base are intact. Mastoid air cells and middle ear cavities are well aerated. No active paranasal sinus disease. CT/CT head/brain wo con IMPRESSION: Unremarkable CT scan of the head. No evidence of acute territorial infarct or hemorrhage. Dictated By: Darren Montalvo MD Signed By: Electronically signed by Darren Montalvo MD 03/28/22 1434 Chest x-ray: Attestation: I personally reviewed and interpreted this imaging study as follows: My impression: No acute process. Radiologist's impression: EXAMINATION: XR CHEST CLINICAL INFORMATION: Shortness of breath. COMPARISON: 09/03/2021 chest radiographs. TECHNIQUE: 2 views of the chest were obtained. FINDINGS: No significant abnormality is noted involving the heart, lungs, mediastinum, bony thorax or soft tissues. XR/XR chest 2V IMPRESSION: No acute cardiopulmonary process. Dictated By: Leon Sanchez MD Signed By: Electronically signed by Leon Sanchez MD 03/28/22 1431 ECG Data Attestation: I personally reviewed and interpreted this ECG as follows: Prior ECG tracings: available for review Interpretation: Vent. Rate: 082 BPM ? ? Atrial Rate: 082 BPM P-R Int: 116 ms? QRS Dur: 072 ms QT Int: 408 ms ? ? ? P-R-T Axes: 043 014 041 degrees QTc Int: 476 ms ? Normal sinus rhythm Nonspecific ST and T wave abnormality Abnormal ECG When compared with ECG of 26-MAR-2022 12:26, T wave inversion no longer evident in Lateral leads DD/ [id number] Critical Care Time Critical Care Time Critical Care Time: Yes Total Critical Care Time: 30 Attestation: I spent 30 minutes of Critical Care Time with this patient. This does not include time spent on separately reported billable procedures. Discharge Plan Discharge Clinical Impression: Drug side effects Patient Disposition: Home, Self-Care Instructions: Adverse Drug Reaction (ED) Additional Instructions: Follow up with your primary care provider and your psychiatrist. Return to the emergency department immediately if your symptoms worsen or if you develop any dizziness, shortness of breath, difficulty breathing, chest pain, blurry vision, loss of vision, nausea, vomiting, abdominal pain, fever, chills, back pain, or any other complaints. Prescriptions: New amantadine HCl 100 mg capsule 100 mg PO BID Qty: 30 0RF propranolol 10 mg tablet 10 mg PO BID Qty: 30 0RF Continued clonazepam 0.5 mg tablet 0.5 mg PO BID Qty: 30 0RF No Action budesonide-formoterol [Symbicort] 160-4.5 mcg/actuation HFA aerosol inhaler 2 puff inhalation BID 30 Days Qty: 10.2 6RF trazodone 100 mg tablet 200 mg PO BEDTIME risperidone 1 mg tablet 0 mg PO paroxetine HCl 40 mg tablet 40 mg PO DAILY omeprazole 40 mg capsule,delayed release(DR/EC) 40 mg PO DAILY Qty: 90 2RF famotidine 40 mg tablet 40 mg PO BEDTIME Qty: 90 3RF bisacodyl [Dulcolax (bisacodyl)] 5 mg tablet,delayed release (DR/EC) 10 mg PO ONCE 1 Days Qty: 2 0RF Rx Instructions: take 2 tabs at noon the day before your colonoscopy polyethylene glycol 3350 [Miralax] 17 gram/dose powder 238 g PO ONCE Qty: 238 0RF Rx Instructions: As directed by gastroenterology department at [facility] Referrals: [facility] [Primary Care Provider] - Interventions: ED Discharge Assessment Last Done: 03/28/22 18:13 Discharge Date/Time: 03/28/22 18:17 Print Language: [place]
--- NOTE | 2022-03-28 12:52 | ECG_ITS ---
Test Reason : DIFFICULTY BREATHING Blood Pressure : / mmHG Vent. Rate : 082 BPM Atrial Rate : 082 BPM P-R Int : 116 ms QRS Dur : 072 ms QT Int : 408 ms P-R-T Axes : 043 014 041 degrees QTc Int : 476 ms Normal sinus rhythm Nonspecific ST and T wave abnormality Abnormal ECG When compared with ECG of 26-MAR-2022 12:26, T wave inversion no longer evident in Lateral leads Referred By: Vita Vallejo Electronically Signed By:KERVIN VILLALPANDO
[2022-03-28 12:54] VITALS: BP 132/56; BP 133/77; PULSE 86; RESP 26; TEMP 36.4; O2SAT 97; O2SAT 99; BMI 19.6
[2022-03-28 13:18] LABS: MANUAL DIFF FLAG NO
[2022-03-28 13:20] LABS: Basophils Percent Auto 0.4 % (0-2); Eosinophils Percent Auto 0.4 % (0-4); Hematocrit 36.4 % (37.0-47.0); Hemoglobin 12.9 g/dl (12.0-16.0); Imm Gran Abs Auto 0.03 X10*3/uL (0.00-0.03); Imm Gran Pct Auto 0.4 % (0.0-0.4); Lymphocytes Absolute Auto 1.5 X10*3/uL (1.2-4.9); Lymphocytes Percent Auto 22.3 % (20-40); Mean Corpuscular HGB Conc 35.4 g/dl (31.0-35.0); Mean Corpuscular Hemoglobin 32.4 pg (27.0-33.0); Mean Corpuscular Volume 91.5 fL (80.0-98.0); Mean Platelet Volume 9.2 fL (9.4-12.3); Monocytes Absolute Auto 0.7 X10*3/uL (0.1-1.2); Monocytes Percent Auto 10.6 % (2-11); Neutrophils Absolute Auto 4.5 x10*3/uL (2.0-8.3); Neutrophils Percent Auto 65.9 % (45-73); Platelet Count 270 X10*3/uL (160-400); Red Blood Count 3.98 X10*6/uL (4.20-5.50); Red Cell Distribution Width 14.5 % (11.0-16.0); White Blood Count 6.8 X10*3/uL (4.8-10.8)
[2022-03-28] MEDS: LORazepam 1 MG TABLET 2 MG PO (13:21)
[2022-03-28 13:34] LABS: COVID-19 Test Negative (Negative); D Dimer High Sensitivity < 150 NG/ML
[2022-03-28 13:44] LABS: Troponin-I High Sensitivity < 3.5 ng/L (<3.5-17.0)
[2022-03-28 13:50] LABS: Alanine Aminotransferase 14 U/L (0-31); Albumin Level 4.1 g/dL (3.5-5.0); Alkaline Phosphatase 85 U/L (39-117); Anion Gap 18 (12-20); Aspartate Amino Transferase 14 U/L (5-31); Bilirubin Total 0.6 mg/dL (0.0-1.0); Blood Urea Nitrogen 12 mg/dL (9-16); Calcium 9.4 mg/dL (8.4-10.2); Carbon Dioxide 16 mmol/L (22-29); Chloride 109 mmol/L (96-108); Creatinine Clr Calc Pharmacy 58.7; Estimated Glomerular Filt Rate > 60; Glucose Random 81 mg/dL (60-115); Magnesium 1.9 mg/dL (1.6-2.6); Potassium 2.9 mmol/L (3.3-5.1); Sodium 140 mmol/L (135-145); Total Protein 6.4 g/dL (6.5-8.0)
[2022-03-28 14:29] VITALS: BP 133/98; PULSE 90; RESP 17; O2SAT 100
[2022-03-28 14:33] LABS: Acetaminophen LAB < 1 mcg/mL (<30); Salicylate < 5.0 mg/dL (15-30)
[2022-03-28] MEDS: Potassium Chloride ER 20 MEQ TAB.ER.PRT 40 MEQ PO (14:34)
--- NOTE | 2022-03-28 14:39 | PC.NURSE ---
Ao x 3. In bed with family member at the bedside. States feeling anxious. Aware of plan of care.
[2022-03-28] MEDS: Potassium Chloride/H20 10 MEQ/100 ML PIGGYBACK 100 MEQ IV ×2 (15:18→16:55)
[2022-03-28 16:09] LABS: Appearance Urine Clear; Color Urine Yellow; Glucose Urine UA Negative (Negative); Leukocyte Esterase Urine Negative (Negative); Nitrite Urine Negative (Negative); PH 8.5 (5.0-8.0); Specific Gravity - Urine <= 1.005 (1.005-1.025); Urine Blood Negative (Negative); Urine Ketones 15 mg/dL (Negative); Urine Protein Negative (Neg-Trace)
--- NOTE | 2022-03-28 17:01 | PM.PSYCN ---
History of Present Illness Date of Service: 03/28/2022 Chief Complaint: SOB Abdominal pain Reason for Consult: medication Requesting physician: Vita Vallejo Discussed with referring provider: Yes Sources of Information: patient interviewed, chart reviewed and crisis/core team assessment reviewed HPI Narrative: Anthony is a 61 y.o. female who presented to the ED on 03/28/22 with SOB and anxiety. Onset of sx was over the last month and pt presented twice for similar presentation in the last week. Medical workup is negative. Patient's granddaughter was present and said she seems to be more forgetful lately over the last month. Consult requested due to pt presenting with presumed med SE. I evaluated the pt this evening with automatic silk screen printer and upon interview pt is found in bed with her granddaughter by her side. I spoke with pt?s brother, as she is currently residing with him. It appears pt has been med adherent and recently started on perphenazine 4 mg BID (last increased 01/22/2022, started 01/01/2022) and risperdal 1.5 mg daily (started at 0.5 mg BID 06/2022) by her OP psychiatrist. She was prescribed cogentin 1 mg BID on 03/18/2022 for presumed med SE. Per granddaughter, pt has likely been over taking her medications. She is currently presenting with sx of akathesia, oral facial tics, and parkisonian sx. She denies mood sx. No hx of IPLOC. Pt?s granddaughter denies that pt has hx of psychosis or bipolar disorder and is unsure of why she was prescribed neuroleptics- pt?s brother is also unsure and denies pt having past psych history other than for anxiety.? Past Psychiatric History: Denies Medical Evaluation [facility]ed: [facility] Hx of abdominal surgery Hx of hysterectomy Hx of tonsillectomy Diagnostics Vital Signs (24Hr): Vital Signs - 24 hr 03/28/22 12:54 03/28/22 14:29 Temperature 97.6 F Pulse Rate 86 90 Respiratory Rate 26 H 17 Blood Pressure 133/77 133/98 H Pulse Oximetry 99 100 Oxygen Delivery Method Room Air Room Air BMI result Body Mass Index 19.6 Labs Results: 03/28/22 13:14 03/28/22 13:14 Labs: Laboratory Results - last 48 hr 03/28/22 03/28/22 03/28/22 13:14 13:14 13:14 WBC 6.8 RBC 3.98 L Hgb 12.9 Hct 36.4 L MCV 91.5 MCH 32.4 MCHC 35.4 H RDW 14.5 Plt Count 270 MPV 9.2 L Immature Gran % (Auto) 0.4 Neut % (Auto) 65.9 Lymph % (Auto) 22.3 [place] % (Auto) 10.6 Eos % (Auto) 0.4 Baso % (Auto) 0.4 Lymph # (Auto) 1.5 [place] # (Auto) 0.7 Eos # (Auto) 0.0 Baso # (Auto) 0.0 Abs Immat Gran (auto) 0.03 Absolute Neuts (auto) 4.5 Absolute Nucleated RBC 0.000 Nucleated RBC % (auto) 0.0 D-Dimer High Sensitivty Sodium 140 Potassium 2.9 L Chloride 109 H Carbon Dioxide 16 L Anion Gap 18 BUN 12 Creatinine 0.74 Estim Creat Clear Calc 58.7 Estimated GFR > 60 Random Glucose 81 Calcium 9.4 D Magnesium 1.9 Total Bilirubin 0.6 AST 14 ALT 14 Alkaline Phosphatase 85 Troponin I High Sens < 3.5 Total Protein 6.4 L Albumin 4.1 Urine Color Urine Appearance Urine pH Ur Specific [place] Urine Protein Urine Glucose (UA) Urine Ketones Urine Blood Urine Nitrite Ur Leukocyte Esterase Salicylates < 5.0 L Acetaminophen < 1 COVID-19 ([facility]) COVID-19 Clin Com 03/28/22 03/28/22 03/28/22 13:14 13:14 16:01 WBC RBC Hgb Hct MCV MCH MCHC RDW Plt Count MPV Immature Gran % (Auto) Neut % (Auto) Lymph % (Auto) [place] % (Auto) Eos % (Auto) Baso % (Auto) Lymph # (Auto) [place] # (Auto) Eos # (Auto) Baso # (Auto) Abs Immat Gran (auto) Absolute Neuts (auto) Absolute Nucleated RBC Nucleated RBC % (auto) D-Dimer High Sensitivty < 150 Sodium Potassium Chloride Carbon Dioxide Anion Gap BUN Creatinine Estim Creat Clear Calc Estimated GFR Random Glucose Calcium Magnesium Total Bilirubin AST ALT Alkaline Phosphatase Troponin I High Sens Total Protein Albumin Urine Color Yellow Urine Appearance Clear Urine pH 8.5 H Ur Specific [place] <= 1.005 Urine Protein Negative Urine Glucose (UA) Negative Urine Ketones 15 Urine Blood Negative Urine Nitrite Negative Ur Leukocyte Esterase Negative Salicylates Acetaminophen COVID-19 ([facility]) Negative COVID-19 Clin Com See Note Imaging Radiology Impressions: ITS Impressions Chest X-Ray 03/28/22 13:30 IMPRESSION: No acute cardiopulmonary process. Head CT 03/28/22 14:05 IMPRESSION: Unremarkable CT scan of the head. No evidence of acute territorial infarct or hemorrhage. Mental Status Exam Mental Status Exam Narrative: A&O. In hospital attire, frail, intesne psychomotor agitation, tremors, involuntary oral facial movements, akathetic. Intermitten eye contact, attentive. No Tics or Tremors. Anxious but cooperative, engaged. Non-pressured speech, spontaneous with regular rate and rhythm, normal volume and prosody. No prolonged speech latency or dysarthria. Mood is ?anxious,? affect is anxious. Denies SI/SIB/HI upon inquiry. Denies A/VH or delusional thought content. Thoughts are perseverative on her sx. No known cognitive or memory impairment. Insight/ Judgment limited but adequate. Medications Medications Current Medications Diphenhydramine HCl 50 mg/ (Sodium Chloride) 51 mls @ 200 mls/hr IV ONCE LATRICIA Allergies Allergies Allergy/AdvReac Type Severity Reaction Status Date / Time No Known Allergies Allergy Verified 03/20/22 09:50 Assessment & Plan Assessment & Plan (1) CATINA (generalized anxiety disorder): Status: Acute Code(s): F41.1 - Generalized anxiety disorder (2) Extrapyramidal and movement disorder, unspecified: Status: Acute Code(s): G25.9 - Extrapyramidal and movement disorder, unspecified Plan Plan: I explicitly explained to pt, her brother, and granddaughter that she needs to stop taking perphenazine and risperdal, as I am unsure of which medication is causing SE, although likely it is the perphenazine- although pt?s granddaughter says she has been overtaking her meds and risperdal has been steadily increased. Will continue cogentin 1 mg BID and start amantadine 100 mg BID, propranolol 10 mg BID, and klonopin 0.5 mg BID for EPS. Will also refer to case management to set up VNA. Pt?s granddaughter agrees to attend pt?s next psychiatry appointment, as she does not feel pt is an advocate for herself and there may be information that is being miscommunicated. ED provider is in agreement with the plan.? I have shared this with Carrie Vallejo Thank you for this consultation. If you have any questions or concerns, please do not hesitate to contact psychiatry service. I spent minutes with the patient and/or on the patient floor today, greater than?50% of which was spent counseling/coordinating care. Patient educated on: diagnosis, medication risk/benefits and therapeutic strategies
--- NOTE | 2022-03-28 17:48 | PC.NURSE ---
family requesting case management contact them instead states pt will not follow through- grace pickens [phone]
--- NOTE | 2022-03-29 09:03 | MHC.CM.PN ---
EMR REVIEWED, CM ATTEMPTED TO MEET W/PT HOWEVER PT HOWEVER PT TRANSFERRED TO [facility], CM TO REVISIT IF NEEDED.
== END 2022-03-28 18:17 | disposition home or self-care (01) ==
PROVIDERS: Physician Assistant Medical; Emergency Provider Emergency Medicine
DX: F41.9 Anxiety disorder, unspecified (principal); R06.02 Shortness of breath; T43.225A Adverse effect of selective serotonin reuptake inhibitors, initial encounter; T43.215A Adverse effect of selective serotonin and norepinephrine reuptake inhibitors, initial encounter; Y92.009 Unspecified place in unspecified non-institutional (private) residence as the place of occurrence of the external cause; E87.6 Hypokalemia; Z20.822 Contact with and (suspected) exposure to COVID-19
CPT/HCPCS: 36415; 70450; 71046; 80053; 80143; 80179; 81003; 83735; 84484; 85025; 85379; 87635; 93005; 96365; 96366; 96375; 99285; J1200